=== PATIENT | male | born 1955 | race Caucasian/White ===

== ENCOUNTER 2024-05-11 18:47 | Emergency (ER) | payer OTHER, SELFPAY ==
--- NOTE | 2024-05-11 18:53 | ED.URI ---
HPI - URI/Sore Throat General Chief Complaint: Upper Respiratory Infection Stated Complaint: covid test Time Seen by Provider: 05/11/24 18:52 Source: patient Mode of arrival: ambulatory Limitations: no limitations History of Present Illness HPI Narrative: Patient is a 68-year-old male who presents with tickle in throat and cough on Thursday. Reports hoarse voice and sore throat started today. Denies any fever, chills, nausea, vomiting, diarrhea, congestion, ear pain. States his girlfriend watches a 2-month-old baby and is concerned to get them sick. Has been taking [id number] cold and flu medicine for hypertensive patient Related Data Home Medications Medication Instructions Recorded Confirmed acetaminophen 500 mg capsule 500 mg PO Q6H PRN Pain, Moderate 12/17/23 05/11/24 amlodipine 10 mg tablet 10 mg PO DAILY 12/17/23 05/11/24 aspirin 81 mg tablet,delayed 81 mg PO DAILY 12/17/23 05/11/24 release atorvastatin 80 mg tablet 80 mg PO QHS 12/17/23 05/11/24 carboxymethylcellulose sodium 1 % 1 drp EACH EYE 4-6XD 12/17/23 05/11/24 eye drops (Artificial Tears (carboxymethylcellulose)) cholecalciferol (vitamin D3) 125 125 mcg PO DAILY 12/17/23 05/11/24 mcg (5,000 unit) capsule citalopram 20 mg tablet 20 mg PO DAILY 12/17/23 05/11/24 ezetimibe 10 mg tablet 10 mg PO DAILY 12/17/23 05/11/24 famotidine 20 mg tablet 20 mg PO DAILY 12/17/23 05/11/24 losartan 50 mg tablet 50 mg PO BID 12/17/23 05/11/24 meloxicam 15 mg tablet 15 mg PO DAILY 12/17/23 05/11/24 multivitamin 1 tablet PO DAILY 12/17/23 05/11/24 semaglutide (weight loss) 1 mg/0.5 1.7 mg subcut WEEKLY 12/17/23 05/11/24 mL subcutaneous pen injector (Lucina) donepezil 5 mg tablet 5 mg PO HS 05/11/24 05/11/24 Allergies Allergy/AdvReac Type Severity Reaction Status Date / Time morphine AdvReac Intermediate Hypotension Verified 05/11/24 18:51 Review of Systems Review of Systems: All systems reviewed & are unremarkable except as noted in HPI and below Constitutional: Constitutional: Denies body ache(s), Denies chills, Denies fatigue, Denies fever(s), Denies headache(s), Denies malaise and Denies weakness Eyes: Eyes: Denies blurry vision, Denies itchy eyes and Denies loss of vision ENT: Denies otalgia, Denies headache(s), Reports hoarseness, Denies nasal congestion, Denies sinus pain and Reports sore throat Cardiovascular: Cardiovascular: Denies chest pain, Denies irregular heart rhythm and Denies dyspnea Respiratory: Respiratory: Reports cough and Denies dyspnea Gastrointestinal: Gastrointestinal: Denies abdominal pain, Denies diarrhea, Denies nausea and Denies vomiting Musculoskeletal: Musculoskeletal: Denies back pain, Denies myalgias and Denies arthralgias Integumentary/Breasts: Skin/Breast: Denies pruritus and Denies rash Neurologic: Denies headache(s), Denies loss of vision and Denies weakness Psychiatric: Psychiatric: Reports no additional psychiatric complaints Endocrine: Endocrine: Denies fatigue Allergic/Immunologic: Allergic/Immunologic: Denies itchy eyes PMFSH Past Medical History Medical History Basal cell carcinoma Hypertension Stroke Thyroid disorder Surgical History Surgical History H/O laminectomy History of cervical spinal arthrodesis History of lumbar fusion S/P total knee replacement Family History Family History Sibling Skin cancer Other Family history of arthritis Social History Social History Smoking status: Never smoker Alcohol intake: current Comments At time of signature, agree with nursing past medical, surgical, social and family history. There is no relevant family history pertinent to the presenting complaint. Exam Const: General: cooperative, healthy appearing, comfortable,
[2024-05-11 19:04] VITALS: BP 144/68; PULSE 59; RESP 18; TEMP 36.4; O2SAT 98
[2024-05-11 19:20] LABS: EDCOVIDSCREEN Negative (Negative)
== END 2024-05-11 19:32 | disposition home or self-care (01) ==
PROVIDERS: Emergency Provider Nurse Practitioner Family; PCP Family Medicine
DX: J06.9 Acute upper respiratory infection, unspecified (principal); Z20.822 Contact with and (suspected) exposure to COVID-19; I10 Essential (primary) hypertension; E07.9 Disorder of thyroid, unspecified; Z85.828 Personal history of other malignant neoplasm of skin; Z79.82 Long term (current) use of aspirin
CPT/HCPCS: 87426; 99212; G0463